=== PATIENT | male | born 1955 | race Caucasian/White ===

== ENCOUNTER → 2017-07-08 | Outpatient (CLI) | payer OTHER | END | disposition home or self-care (01) | LOC: CFH 10:37 | PROVIDERS: ATTEND Internal Medicine | DX: M19.042 Primary osteoarthritis, left hand (principal); M79.89 Other specified soft tissue disorders ==

== ENCOUNTER 2019-08-10 10:51 | Emergency (ER) | payer MEDICARE ==
[~2019-08-10] VITALS: Ht 175.3 cm; Wt 87.9 kg
[2019-08-10 11:40] VITALS: BP 184/98
--- NOTE | 2019-08-10 12:19 | NUR ---
FROM LOBBY TO ROOM AT THIS TIME
[2019-08-10] MEDS ORDERED: DIPH,PERTUSS(ACELL),TET VAC/PF 0.5 ML IM-VACC ONE ×2 (12:37→13:00)
[2019-08-10] MEDS ORDERED: NEOSPORIN OINT. PKT 1 PACKET ONE (12:38)
--- NOTE | 2019-08-10 12:47 | NUR ---
WOUND CLEANED, BACITRACIN APPLIED, PT MEDICATED PER MAR
== END 2019-08-10 13:35 | disposition home or self-care (01) ==
LOC: ED 13:26
DX: S61.431A Puncture wound without foreign body of right hand, initial encounter (principal); W26.8XXA Contact with other sharp object(s), not elsewhere classified, initial encounter; Y93.89 Activity, other specified; Y92.89 Other specified places as the place of occurrence of the external cause; Y99.8 Other external cause status
CPT/HCPCS: 90471; 90715; 99283

== ENCOUNTER → 2020-02-01 | Outpatient (CLI) | payer MEDICARE | END | disposition home or self-care (01) | LOC: CFH 08:59 | PROVIDERS: ATTEND Internal Medicine | DX: J45.40 Moderate persistent asthma, uncomplicated (principal); R53.83 Other fatigue | CPT/HCPCS: 71046 ==